=== PATIENT | female | born 1940 | race Caucasian/White ===

== ENCOUNTER 2024-05-31 23:36 | Inpatient (IN) | payer SELFPAY ==
[~2024-05-31] VITALS: Ht 144.8 cm; Wt 65.4 kg
[~2024-05-31 23:36] MED LIST: BACTRIM DS 8001 TAB PO; CEPHALEXIN500 M1 PO; EUTHYROX125 MCG PO; KETOPROFEN PO; LIPITOR20 MG PO; MELATIN 3 MG-11 TAB PO; MULTI VITAMINS1 TAB PO; NEOMYCIN S500 MG/TAB PO; TRAVEL SICKNESS50 MG PO; ULTRACET TABL1 UDTAB PO
[2024-06-01] VITALS (13 sets, daily range): BP systolic 93–172; BP diastolic 42–78; PULSE 77–99; TEMP 98.1–99.2
[2024-06-01 00:19] LABS: COLLECTION METHOD CATHETER
[2024-06-01 00:37] LABS: PH 6.5 (5.0-8.5); URINE APPEARANCE TURBID (CLEAR/HAZY); URINE BLOOD 2+ (NEGATIVE); URINE COLOR RED (YELLOW); URINE KETONE NEGATIVE (NEGATIVE); URINE PROTEIN(semi-quant) 3+ (NEGATIVE); URINE UROBILINOGEN 0.2 E.U/dL (0.2-1.0)
[2024-06-01 00:44] LABS: MEAN CELL VOLUME 88 fl (80.0-100.0); MEAN CORPUSCULAR HGB CONC 32 g/dl (33.0-37.0); MEAN PLATELET VOLUME 8.8 fl (7.4-10.4); PLATELET COUNT 409 K/mm3 (130-400); RED BLOOD COUNT 3.47 M/mm3 (4.10-5.30)
[2024-06-01 00:49] LABS: HEMATOCRIT 30.5 % (37.0-47.0); HEMOGLOBIN 9.7 g/dl (12.5-16.0); MEAN CORPUSCULAR HEMOGLOBIN 28 pg (27-31)
[2024-06-01 01:05] LABS: ALBUMIN 3.4 g/dL (3.4-4.8); BILIRUBIN,TOTAL 0.4 mg/dL (0.2-1.2); CREATININE, serum 1.66 mg/dL (0.57-1.11); POTASSIUM 4.9 mEq/L (3.5-4.5); TOTAL PROTEIN 6.8 g/dl (6.2-8.1)
[2024-06-01 01:08] LABS: SQUAMOUS EPITHELIAL 0-2 /hpf (0-10); URINE BACTERIA RARE /hpf (NONE SEEN); URINE RBC >50 /hpf (0-2); URINE WBC 20-50 /hpf (0-2)
[2024-06-01 01:17] LABS: BAND 3 % (0-10); LYMPHOCYTE 24 % (20.0-51.0); NEUTROPHILS 64 % (42.0-75.2); PLATELET ESTIMATE INCREASED (NORMAL)
[2024-06-01] MEDS ORDERED: Iodixanol-320 100 ML BOTTLE IV ONE (01:25)
[2024-06-01] MEDS ORDERED: NS 50 ML IV SCH (01:25)
[2024-06-01] MEDS ORDERED: NS 1,000 ML IV ONE (01:30)
[2024-06-01] MEDS ORDERED: cefTRIAXone 1 G in Water For Injection,Sterile 10 ML IV ONE (01:30)
[2024-06-01] MEDS ORDERED: Acetaminophen 325 MG TAB PO PRN (02:15)
[2024-06-01] MEDS ORDERED: Morphine 4 MG/ML VIAL IV ONE (02:30)
[2024-06-01] MEDS ORDERED: Morphine 4 MG/ML VIAL IV PRN (04:00)
[2024-06-01] MEDS ORDERED: ASPIRIN 81M81 MG/TA2 PO (04:08)
[2024-06-01] MEDS ORDERED: NS 1,000 ML IV SCH (04:15)
--- NOTE | 2024-06-01 04:30 | NUR ---
Pt arrived to the unit from ED around 0345. Pt was wet from urine output, output was red in color. Pt was having a lot of pain and discomfort upon arrival. PCT staff slovenian speaking and assisted with explaining the admission and tasks we were doing. Marquez catheter removed and 3 way catheter placed. Irrigated catheter and pulled off many clots. Hooked CBI up and continued to irrigate until output was flowing. Output light red in color after CBI running for quite a while. CBI running at moderate rate. Pts daughter in the room during this time.
--- NOTE | 2024-06-01 05:03 | NUR ---
CBI continues to run at moderate rate. Had to stop CBI briefly as the catheter bag would not drain when emptying due to clots and had to work at getting it to drain. During this short time, output went from light red to dark red. CBI turned back on and output lightened back up. PT reports feeling much better at this time. Daughter remains with pt, no questions at this time
[2024-06-01] MEDS ORDERED: SODIUM CHLORIDE NS ONE (06:30)
[2024-06-01] MEDS ORDERED: NS Irrig Soln 3000 ML SOLN IRP PRN (06:45)
[2024-06-01] MEDS ORDERED: Heparin 5,000 UNITS/ML 1 ML VIAL SQ SCH (08:00)
[2024-06-01] MEDS ORDERED: Famotidine 20 MG TAB PO SCH (09:00)
--- NOTE | 2024-06-01 10:27 | NUR ---
SW met with patient and daughter Ligia ([phone]) to complete initial assessment for discharge planning using the [employer] audience coordinator. RN Marleny in room during visit. Patient and daughter verified that patient lives in [place] with daughter, is normally independent with activities and uses no DME. Patient and daughter shared that patient does not have a PCP. Patient uses [facility] with family assisting with cost of medications. Patient does not have insurance as she is in [facility] [address] from [place]. Patient lists her two sons, Danny Freire and Bijan Freire as well as a grandson Elias Hay ([phone]) as contacts. Discharge plan at this time is for patient to return home with her daughter. Patient and daughter were given translated copy of [place] PCP list and [facility]. Discharge plan: Home
[2024-06-01] MEDS ORDERED: Meropenem 500 MG in Water For Injection,Sterile 10 ML IV SCH (11:00)
--- NOTE | 2024-06-01 16:37 | NUR ---
PATIENT OFF OF FLOOR FOR SURGERY
[2024-06-01] MEDS ORDERED: fentaNYL 50 MCG/ML 2 ML VIAL ONE (16:38)
[2024-06-01] MEDS ORDERED: Ondansetron 4 MG/2 ML VIAL ONE (16:39)
[2024-06-01] MEDS ORDERED: dexAMETHasone 10 MG/ML VIAL ONE (16:39)
[2024-06-01] MEDS ORDERED: Lidocaine PF 2% (20 MG/ML) 5 ML VIAL ONE (16:39)
[2024-06-01] MEDS ORDERED: NS 10 ML IV ONE (16:39)
[2024-06-01] MEDS ORDERED: Glycopyrrolate 0.2 MG/ML 1 ML VIAL ONE (16:39)
[2024-06-01] MEDS ORDERED: Meperidine 50 MG/ML 1 ML VIAL IV PRN (16:45)
[2024-06-01] MEDS ORDERED: Ondansetron 4 MG/2 ML VIAL IV PRN (16:45)
[2024-06-01] MEDS ORDERED: Morphine 2 MG/1 ML VIAL [PACU/SDC ONLY] IV PRN (16:45)
[2024-06-01] MEDS ORDERED: LR 1,000 ML IV SCH (16:45)
[2024-06-01] MEDS ORDERED: HYDROmorphone 1 MG/1 ML SYRINGE [PACU/SDC ONLY] IV PRN (16:45)
--- NOTE | 2024-06-01 19:30 | NUR ---
PATIENT RETURNRD FROM OR, VITAL SIGNS ARE: 97% 02 ON 1L, BP 100/48, PULSE 74, TEMP 99.2. AXO X4. C/O NO PAIN AT THIS TIME, 8 FAMILY MEMBERS BEDSIDE. POST OP VITALS INITIATATED AND CBI FLOWING WELL AND OUTPUT LIGHT PINK.
--- NOTE | 2024-06-01 20:34 | NUR ---
CALL PLACED TO CHARGE NURSE, DALIA. PATIENT BP POST-OP BP SOFT AT 101/48. ALL OTHER VITALS WNL AND PATIENT AXO X4, COLOR GOOD. NO NEW INTERVENTIONS GIVEN. PATIENT OTHERWISE STABLE AND IN GOOD SPIRITS.
[2024-06-01] MEDS ORDERED: Melatonin 3 MG TAB PO SCH (21:00)
[2024-06-01] MEDS ORDERED: Atorvastatin 20 MG TAB PO SCH (21:00)
--- NOTE | 2024-06-01 22:20 | NUR ---
PATIENT POST OP VITALS WNL. CBI CONTINUES TO FLOW LIGHT RED/PINK. NO COMPLAINTS OF PAIN THUS FAR. PATIENT STILL HAS NOT PASSED GAS. TOOK PILLS WHOLE WITH 21:00 MED PASS. STATES NO NEEDS AT THIS TIME.
[2024-06-02] VITALS (16 sets, daily range): BP systolic 94–126; BP diastolic 48–68; PULSE 70–83; TEMP 97.8–99.1
[2024-06-02] MEDS ORDERED: cefTRIAXone 1 G in Water For Injection,Sterile 10 ML IV SCH (02:00)
[2024-06-02 06:56] LABS: MEAN CELL VOLUME 89 fl (80.0-100.0); MEAN CORPUSCULAR HGB CONC 32 g/dl (33.0-37.0); MEAN PLATELET VOLUME 9.2 fl (7.4-10.4); RED BLOOD COUNT 2.21 M/mm3 (4.10-5.30); REDCELL DISTRIBUTION WIDTH-CV 15.5 % (11.5-14.5)
[2024-06-02 07:10] LABS: CALCIUM 8.1 mg/dL (8.4-10.2); CREATININE, serum 1.52 mg/dL (0.57-1.11)
[2024-06-02 07:17] LABS: HEMATOCRIT 19.6 % (37.0-47.0); HEMOGLOBIN 6.2 g/dl (12.5-16.0); MEAN CORPUSCULAR HEMOGLOBIN 28 pg (27-31); PLATELET COUNT 255 K/mm3 (130-400)
--- NOTE | 2024-06-02 07:51 | NUR ---
Notified Dr Jaramillo of pts hemoglobin and wbc
[2024-06-02 07:52] LABS: BAND 4 % (0-10); LYMPHOCYTE 1 % (20.0-51.0); NEUTROPHILS 95 % (42.0-75.2)
[2024-06-02 07:53] LABS: PLATELET ESTIMATE NORMAL (NORMAL)
--- NOTE | 2024-06-02 08:57 | NUR ---
Pt doing well this morning. CBI running at slow rate with pale yellow output. Pt tolerating general diet with no complaints a this time. Daughter has remained with pt
--- NOTE | 2024-06-02 10:23 | NUR ---
Initial visit; Patient and her daughter; Ladi thanked Calender Operator for offering a "welcome" and prayer for healing and thanksgiving for the medical staff caring for Farrah and for the love and support of her family.
--- NOTE | 2024-06-02 11:13 | NUR ---
Pt up recently with ambulatory. Pt did okay with no complaints of feeling light headed or dizzy. pt is now back in bed. She has a son that just arrived and her daughter has left. Pt reports having no pain at this time. Educated that I will be taking the sy catheter out. Also started blood transfusion, pt and family have no questions.
--- NOTE | 2024-06-02 11:21 | NUR ---
Dr Jaramillo confirmed with Dr Seo and then ok'd to remove sy catheter. Sy catheter primed and pulled at this time. Pts son that is present was able to translate to pt. Pt aware to notify nursing when she needs to void. Pt showing no signs of reaction to blood transfusion, rate increased to 120
--- NOTE | 2024-06-02 13:00 | NUR ---
Pt doing well voiding. Has gone x2. First time there was a clot, 2nd void was clear. Pt has no complaints of pain and is steady on her feet getting to the bathroom. She continues to tolerate the blood transfusion. Pt has family with her at this time
[2024-06-02] MEDS ORDERED: Sodium Zirconium Cyclosilicate for Oral Susp 10 GM PACKET PO ONE (14:00)
[2024-06-02 15:10] LABS: HEMOGLOBIN 7.2 g/dl (12.5-16.0)
--- NOTE | 2024-06-02 15:24 | NUR ---
Nurse Coordinator attended clinical rounds with the team and patient is not ready for discharge today. SW attempted to follow up later and patient's son requested SW return when patient's daughter returns after resting.
--- NOTE | 2024-06-02 22:09 | NUR ---
UPON SHIFT ASSESSMENT, NATALIA WAS IN BED AND A&O x4 WITH FAMILY BEDSIDE. SHE IS VOIDING FAINT PINK CLEAR URINE EVERY 1-2 HOURS AND AMBULATES TO BATHROOM WITH STANDBY ASSISST AND STEADY GAIT. VS ARE WNL AND PATIENT DENIES DYSURIA OR GROSS HEMATAURIA. HgB NOW 7.2 FOLLOWING TRANSFUSION OF ONE UNIT PRBC BY DAYSHIFT. ABDOMEN IS DISTENDED AND SOFT. PATIENT STATES SHE IS PASSING GAS BUT HAS HAD NO BM SHE HAS NO APPETITE. SNACK OFFERED AND REFUSED. BED BATH AND LINEN CHANGED OFFERED, HOWEVER, PATIENT PREFERS TO WAIT TILL MORNING.
[2024-06-03] VITALS (7 sets, daily range): BP systolic 109–146; BP diastolic 64–70; PULSE 77–99; TEMP 98.5–99.8
--- NOTE | 2024-06-03 02:00 | NUR ---
PATIENT RESTING SUPINE, FAMILY MEMBER ASLEEP OM BEDSIDE COUCH. NO SIGNS OF DISTRESS.
[2024-06-03 06:14] LABS: BASO % 0.2 % (0.0-2.0); EOS # 0.3 K/mm3 (0.0-0.7); GRAN % 81.7 % (42.2-75.2); LYMPH # 1.4 K/mm3 (1.2-3.4); LYMPH % 9.5 % (20.0-51.0); MEAN CELL VOLUME 86 fl (80.0-100.0); MEAN CORPUSCULAR HGB CONC 32 g/dl (33.0-37.0); MEAN PLATELET VOLUME 9.3 fl (7.4-10.4); MONO # 0.9 K/mm3 (0.1-0.6); MONO % 6.1 % (1.7-9.3); PLATELET COUNT 229 K/mm3 (130-400); RED BLOOD COUNT 2.55 M/mm3 (4.10-5.30); REDCELL DISTRIBUTION WIDTH-CV 17.5 % (11.5-14.5)
[2024-06-03 06:18] LABS: HEMATOCRIT 21.9 % (37.0-47.0); MEAN CORPUSCULAR HEMOGLOBIN 27 pg (27-31)
[2024-06-03 06:27] LABS: CREATININE, serum 1.22 mg/dL (0.57-1.11); POTASSIUM 3.9 mEq/L (3.5-4.5)
--- NOTE | 2024-06-03 08:40 | NUR ---
patient alert and oriented x4. denies pain at this time. on room air.abdomen distended. voiding well some hematuria noted in the urine this morning. family member at bedside. call light within reach. bed at lowest position.
[2024-06-03] MEDS ORDERED: Meropenem 500 MG in Water For Injection,Sterile 10 ML IV SCH (11:00)
--- NOTE | 2024-06-03 11:25 | NUR ---
Machine Fancy Stitcher met with patient and her daughter, Ladi using the [employer] wafer fab technician. Ladi stated plan is for patient to return home with her, not to return to [place]. LONG discussed the option for home hospice services and that they could possibly offer support a couple times a week. Ladi is agreeable to have referral sent to [facility], a hospice agency that can sometimes offer services to patients who are uninsured. LONG contacted Zuly at [facility] and sent referral via secure email. Zuly stated they could possibly accept Thursday or Thursday. LONG and CHYNA Cohen followed up with Ladi as it was unclear if family understood what hospice meant and if they were on the same page for plan of care. Ladi requested the medical team round when her brothers arrive from [place] today.
--- NOTE | 2024-06-03 13:07 | NUR ---
Multicultural Services Librarian met with patient and her three children at bedside along with Hospitalist to discuss goals of care. After discussion, patient and family are agreeable to return home with hospice services. Hospitalist and SW answered questions. SW followed up with Zuly at [facility] and they will start services on Thursday (1230 Social Work, 1330 RN). SW provided this information to family and also to business unit leader to include in discharge instructions. Hospitalist is agreeable to sending patient home over the weekend with start of services on Thursday.
--- NOTE | 2024-06-03 15:49 | NUR ---
forestry workers was notified [facility] is waiting to hear if Dr. Tellez is able to follow. LONG left a message with Sary at [facility] to see if she is able to get in touch with Dr. Tellez or his nurse. forestry workers was notified [facility] is still waiting to hear if Dr. Tellez is able to follow. LONG explained patient is going to discharge home today. [facility] explained they will follow up with the family about if Dr. Tellez is able to follow patient and ensure the appointment on Thursday will still work. LONG notified patient's nurse of the above information and is going to notify the family. Discharge plan: Home with [facility]
--- NOTE | 2024-06-03 15:57 | NUR ---
LONG was notified Dr. Tellez is able to follow patient for hospice services. LONG notified patient's nurse so she could inform them their appointment on Thursday is set. Discharge plan: Home with [facility]
--- NOTE | 2024-06-03 16:13 | NUR ---
PATIENT DISCHARGE INSTRUCTIONS GIVEN TO PATIENT AND FAMILY. PATIENT AND FAMILY VERBALIZED UNDERSTANDING. PATIENT IV REMOVED FROM LEFT AC. PATIENT ESCORTED OUT OF UNIT BY BARRIE HECK ACCOMPANIED BY PATIENT FAMILY.
--- NOTE | 2024-06-06 11:23 | NUR ---
kettle worker secure emailed discharge orders to Zluy at [facility]. Discharge plan: Home with [facility]
== END 2024-06-03 16:23 | disposition hospice, home (50) | DRG 669 ==
LOC: COL.ER 23:36 → MEDICAL 06-01 02:06 → SURG 06-01 02:06 → COL.ER 06-01 02:06 → SURG 06-01 17:25
PROVIDERS: Physician Assistant; Urology; ADMIT Internal Medicine
PROC: 0TCB8ZZ Extirpation of Matter from Bladder, Via Natural or Artificial Opening Endoscopic (ICD-10-PCS; 2024-06-01)
PROC: 0TBB8ZZ Excision of Bladder, Via Natural or Artificial Opening Endoscopic (ICD-10-PCS; principal; 2024-06-01 19:00)
DX: C65.2 Malignant neoplasm of left renal pelvis (principal); D62 Acute posthemorrhagic anemia; N13.2 Hydronephrosis with renal and ureteral calculous obstruction; R65.10 Systemic inflammatory response syndrome (SIRS) of non-infectious origin without acute organ dysfunction; N17.9 Acute kidney failure, unspecified; C67.9 Malignant neoplasm of bladder, unspecified; R31.0 Gross hematuria; E78.5 Hyperlipidemia, unspecified; E03.9 Hypothyroidism, unspecified; Z87.440 Personal history of urinary (tract) infections; Z90.710 Acquired absence of both cervix and uterus; Z90.49 Acquired absence of other specified parts of digestive tract; Z46.6 Encounter for fitting and adjustment of urinary device; Z79.899 Other long term (current) drug therapy; Z79.82 Long term (current) use of aspirin; Z79.02 Long term (current) use of antithrombotics/antiplatelets
CPT/HCPCS: A4314; A9270; C1769; C1894; J0690; J0696; J1100; J1170; J1920; J2185; J2270; J2405; J2704; J3010; J7030; P9016; Q9967